=== PATIENT | female | born 1950 | race Caucasian/White ===

== ENCOUNTER → 2017-11-25 13:50 | Outpatient (CLI) | payer OTHER, SELFPAY | PROVIDERS: Visit Provider Student in an Organized Health Care Education/Training Program | DX: M85.88 Other specified disorders of bone density and structure, other site (principal); Z78.0 Asymptomatic menopausal state; E58 Dietary calcium deficiency | CPT/HCPCS: 77080 ==

== ENCOUNTER 2019-06-26 14:21 | Emergency (ER) | payer MEDICARE, SELFPAY ==
[2019-06-26 14:29] VITALS: BP 109/53; PULSE 82; RESP 20; TEMP 36.4; O2SAT 98; BMI 25.0
[2019-06-26 15:29] LABS: RBC Urine 1-5/HPF (0-5/HPF)
[2019-06-26 15:30] LABS: Bacteria Urine Many (>30); Culture Indicated Urine Specimen Cultured; Hyaline Casts Urine 1-5/LPF; Squamous Epithelial Cell Urine None Seen (0-5/HPF); WBC Urine >100/HPF (0-5/HPF)
[2019-06-26 17:14] VITALS: BP 129/58; PULSE 105; RESP 18; TEMP 39; O2SAT 99
--- NOTE | 2019-06-26 17:36 | DI.RAD.S_ITS ---
PROCEDURE: XR CHEST 1V INDICATIONS: suspected sepsis TECHNIQUE: One view of the chest was acquired. COMPARISON: None. FINDINGS: Surgical changes and devices: None. Lungs and pleura: Lungs are clear. No pleural effusions or pneumothorax. Mediastinum: Mediastinal contours appear normal. Heart size is normal. Bones and chest wall: No suspicious bony lesions. Overlying soft tissues appear unremarkable. IMPRESSION: No acute cardiopulmonary disease process. Dictated by: Miranda Farris MD, PhD on 06/26/2019 at 18:45 Approved by: Miranda Farris MD, PhD on 06/26/2019 at 18:45
[2019-06-26 18:04] LABS: Add Manual Diff / Slide Review NO; Basophils Absolute Auto 0 /uL (0-100); Basophils Percent Auto 0.3 % (0-2); Eosinophils Absolute Auto 0 /uL (0-450); Hematocrit 38.4 % (36-46); Hemoglobin 12.9 g/dL (12.0-16.0); Lymphocytes Absolute Auto 500 /uL (1100-4500); Lymphocytes Percent Auto 3.5 % (25-40); Mean Corpuscular HGB Conc 33.6 % (30-36); Mean Corpuscular Hemoglobin 29.7 PG (26-34); Mean Corpuscular Volume 88.4 fL (80-100); Monocytes Absolute Auto 1600 /uL (0-900); Monocytes Percent Auto 10.4 % (3-14); Neutrophils Absolute Auto 12800 /uL (1500-7000); Neutrophils Percent Auto 85.8 % (50-75); Platelet Count 190 X10^3/uL (150-400); Red Blood Cell Count 4.35 X10^6/uL (4.0-5.2); Red Cell Distribution Width 13.6 % (11.6-14.8); White Blood Cell Count 14.9 X10^3/uL (4.5-11.0)
[2019-06-26 18:06] LABS: INR 1.3 (0.9-1.3); Prothrombin Time 15.4 SECONDS (10.1-12.7)
[2019-06-26 18:08] LABS: PTT Partial Thromboplastin Tim 29 SECONDS (26.4-36.2)
[2019-06-26 18:09] LABS: Alanine Aminotransferase 19 IU/L (<35); Albumin 4.2 g/dL (3.5-5.0); Albumin Globulin Ratio 1.2 (1.0-2.8); Alkaline Phosphatase 94 U/L (38-126); Aspartate Aminotransferase 22 IU/L (14-36); BUN Creatinine Ratio 32.9 (6-22); Bilirubin Total 2.4 mg/dL (0.2-1.3); Blood Urea Nitrogen 23 mg/dL (7-17); Calcium 9.7 mg/dL (8.4-10.2); Carbon Dioxide 23 mmol/L (22-32); Chloride 103 mmol/L (98-107); Estimated Glomerular Filt Rate > 60.0 mL/min (>60); Globulin 3.5 g/dL (1.7-4.1); Glucose 134 mg/dL (80-110); HEMOLYSIS < 15 (0-50); Potassium 3.6 mmol/L (3.4-5.1); Sodium 138 mmol/L (137-145); Total Protein 7.7 g/dL (6.3-8.2)
[2019-06-26 18:10] LABS: Lactate (Lactic Acid) 1.2 mmol/L (0.7-2.1); Lipase < 10 U/L (23-300)
[2019-06-26 18:24] VITALS: TEMP 37.9
[2019-06-26] MEDS: ACETAMINOPHEN 325 MG TABLET 650 MG PO (18:24)
[2019-06-26] MEDS: SODIUM CHLORIDE 0.9% 1,000 ML 1000 ML IV (18:25)
[2019-06-26 18:26] VITALS: TEMP 37.9
[2019-06-26] MEDS: ONDANSETRON 4 MG/2 ML INJ IV ×2 (18:26→20:04)
[2019-06-26] MEDS: KETOROLAC 60 MG/2 ML VIAL 15 MG IV (18:26)
[2019-06-26] MEDS: CEFTRIAXONE 1 GM/50 ML FROZ.PIGGY IV (18:27)
[2019-06-26 18:37] LABS: Procalcitonin 2.41 ng/mL (<0.5)
--- NOTE | 2019-06-26 18:41 | PC.NURSE ---
sent from walk in clinic. Urine positive in [facility]
--- NOTE | 2019-06-26 19:30 | ED_ITS ---
HPI - Female Genitourinary <Jimmy NicoleJULIANNAP - Last Filed: 06/26/19 21:50> General Chief complaint: Urogenital-Female Stated complaint: patient states UTI Time Seen by Provider: 06/26/19 16:57 Source: patient Mode of arrival: Wheelchair Limitations: no limitations History of Present Illness HPI Narrative: This is a pleasant 61 year female who appears to be younger than her stated age, nonsmoker, who presents to ED with significant other with I have UTI. Patient was referred from a walk-in clinic for an evaluation. Patient reports T-max of 104? at home this morning and she took Advil which helped with her temperature and made her feel better. She also reports has chills, lightheadedness and mild sensation of vertigo (has a history of this), and feeling fatigue. She also reports urinary incontinence for last couple of days without other urinary symptoms such as urgency, frequency, dysuria, hematuria. Patient states she was nauseated all day for last 2 days and has be en vomiting since last night. Patient also reports returning from [place] last night feeling ill. Related Data Previous Rx's Medication Instructions Recorded cephalexin [Keflex] 500 mg PO Q6H 10 Days #40 cap 06/26/19 ondansetron 4 mg PO Q6-8H PRN #10 tab 06/26/19 Allergies Allergy/AdvReac Type Severity Reaction Status Date / Time No Known Drug Allergies Allergy Verified 06/26/19 18:23 Review of Systems <Jimmy NicoleJULIANNAP - Last Filed: 06/26/19 21:50> Review of Systems Narrative: General: Reports fever, chills, fatigue, malaise. HEENT: Denies sinus pain, ear pain, sore throat, difficulty swallowing, (+) dizziness. Respiratory: Denies dyspnea, cough, wheezing, hemoptysis, sputum. Cardiovascular: Denies chest pain, palpitations, orthopnea, edema. Gastrointestinal: Reports nausea and vomiting. Denies abdominal pain, diarrhea, constipation, melena. : Denies dysuria, frequency, (+) incontinence, hematuria, urinary retention. Musculoskeletal: Denies weakness, joint pain or bony pain. Skin: Denies rash, skin lesions, or other. Neurologic: Denies weakness, headache, numbness, change in speech, confusion, seizures, incoordination. Psychiatric: No concerning psychosocial issues. 12-point review of systems is negative except for those stated above. Patient History <HALIE Conrad - Last Filed: 06/26/19 21:50> Medical History No significant past medical history (Acute) Surgical History No pertinent past surgical history (Acute) Smoking Status: Never smoker alcohol intake frequency: other Substance Use Type: does not use Exam <HALIE Conrad - Last Filed: 06/26/19 21:50> Narrative Exam Narrative: GEN: Alert, oriented x 3, appears to be younger than her stated age, well nourished, and in no acute distress. Head: Normal cephalic, atraumatic. No scalp or temporal tenderness, palpable mass or rash. EYES: Pupils are equal, round, and reactive to light and accommodation. Extraocular muscles are intact bilaterally. There is no subconjunctival hemorrhage, exudate and sclera non-icteric. ENT: Bilateral auditory canals and tympanic membranes clear. Hearing grossly intact. Nose without bleeding, purulent discharge or deviation. Facial sinuses nontender to palpate. Mucous membrane dry, no mucosal lesion. Throat without erythema, tonsillar hypertrophy or exudate. Uvula in midline, airway patent. Neck: Trachea in midline. No JVD, non-tender without lymphadenopathy. No masses or thyroid megaly. Supple, non-tender and no meningeal signs. CARDIAC: Normal regular rate and rhythm without murmurs, gallops, or rubs. No chest wall tenderness. No peripheral edema, cyanosis or pallor. Capillary refill is less than 2 seconds. RESPIRATORY: Lungs are clear to auscultate bilaterally. No cough, wheezes, rales, or rhonchi. No stridor, respiratory distress, increase work of breathing, or accessary muscle used. ABD: Abdomen soft, bilateral lower abdomen TTP with non-distended. No guarding or rebound tenderness to palpate. Bowel sounds are normal in all 4 quadrants. There is no palpable masses or organomegaly. EXT: Full painless ROM of all extremities with no loss of sensation, strength, effusion or edema. SKIN: Warm, dry, normal color for patient. No erythema, lesions or rash over visible areas. BACK: Nontender without deformity or crepitance. No flank tenderness. NEUROLOGICAL: Alert and oriented to place, time and person. Sensation and motor function intact bilaterally. No facial droops, dysphasia. PSYCHIATRIC: Good judgement and reason, without hallucinations, abnormal affect or abnormal behaviors during the examination. Initial Vital Signs Initial Vital Signs: Vital Signs Temperature 97.6 F 06/26/19 14:29 Pulse Rate 82 06/26/19 14:29 Respiratory Rate 06/26/19 14:29 Blood Pressure 109/53 L 06/26/19 14:29 Pulse Oximetry 98 06/26/19 14:29 <Zachary Mascorro MD - Last Filed: 06/26/19 23:14> Initial Vital Signs Initial Vital Signs: Vital Signs Temperature 97.6 F 06/26/19 14:29 Pulse Rate 82 06/26/19 14:29 Respiratory Rate 06/26/19 14:29 Blood Pressure 109/53 L 06/26/19 14:29 Pulse Oximetry 98 06/26/19 14:29 Scores <HALIE Conrad - Last Filed: 06/26/19 21:50> GCS Krystal coma scale eye opening: Spontaneous Krystal coma scale verbal response: Orientated Krystal coma scale motor response: Obey commands Krystal coma scale total score: 15 Course <HALIE Conrad - Last Filed: 06/26/19 21:50> Orders Ordered: ED Orders 06/26/19 15:00 Urine Culture Stat Urine Microscopic Stat 06/26/19 17:36 XR chest 1V Stat EKG-12 Lead Stat RT Consult Eval and Treat Now 06/26/19 17:45 Complete Blood Count AUTO DIFF Stat Comprehensive Metabolic Panel Stat Lactate (Lactic Acid) Stat Lipase Stat Partial Thromboplastin Time Stat Procalcitonin Stat Prothrombin Time INR Stat 06/26/19 18:20 Blood Culture Stat 06/26/19 19:40 Influenza A & B (PCR) Stat Discontinued Medications Acetaminophen (Tylenol) 650 mg PO NOW ONE Stop: 06/26/19 18:10 Last Admin: 06/26/19 18:24 Dose: 650 mg Documented by: NHAN Sodium Chloride (Normal Saline 0.9%) 1,000 mls @ 1,000 mls/hr IV BOLUS ONE Stop: 06/26/19 18:35 Last Infusion: 06/26/19 21:03 Dose: 0 mls/hr Documented by: Admin: 06/26/19 18:25 Dose: 1,000 mls/hr Documented by: NHAN Ceftriaxone Sodium/Dextrose (Rocephin) 1 gm in 50 mls @ 100 mls/hr IV NOW ONE Stop: 06/26/19 18:39 Last Infusion: 06/26/19 21:03 Dose: 0 mls/hr Documented by: Admin: 06/26/19 18:27 Dose: 100 mls/hr Documented by: NHAN Ketorolac Tromethamine (Toradol) 15 mg IV NOW ONE Stop: 06/26/19 18:10 Last Admin: 06/26/19 18:26 Dose: 15 mg Documented by: NHAN Ondansetron HCl (Zofran) 4 mg IV NOW ONE Stop: 06/26/19 18:10 Last Admin: 06/26/19 18:26 Dose: 4 mg Documented by: NHAN Ondansetron HCl (Zofran) 4 mg IV NOW ONE Stop: 06/26/19 19:52 Last Admin: 06/26/19 20:04 Dose: 4 mg Documented by: NHAN Ondansetron HCl (Zofran Odt Prepack) 1 bottle MISC SEEINSTR ONE Stop: 06/26/19 20:54 Last Admin: 06/26/19 21:05 Dose: 1 bottle Documented by: NHAN Vital Signs Vital signs: Vital Signs - 8 hr 06/26/19 17:14 06/26/19 18:24 06/26/19 18:26 Temperature 102.2 F H 100.2 F H 100.2 F H Pulse Rate 105 H Respiratory Rate 18 Blood Pressure Blood Pressure [Right Arm] 129/58 L Pulse Oximetry 99 06/26/19 19:51 06/26/19 21:18 Temperature 98.7 F Pulse Rate 85 82 Respiratory Rate 16 15 Blood Pressure 101/61 Blood Pressure [Right Arm] 110/56 L Pulse Oximetry 97 97 <Zachary Mascorro MD - Last Filed: 06/26/19 23:14> Orders Ordered: ED Orders 06/26/19 15:00 Urine Culture Stat Urine Microscopic Stat 06/26/19 17:36 XR chest 1V Stat EKG-12 Lead Stat RT Consult Eval and Treat Now 06/26/19 17:45 Complete Blood Count AUTO DIFF Stat Comprehensive Metabolic Panel Stat Lactate (Lactic Acid) Stat Lipase Stat Partial Thromboplastin Time Stat Procalcitonin Stat Prothrombin Time INR Stat 06/26/19 18:20 Blood Culture Stat 06/26/19 19:40 Influenza A & B (PCR) Stat Discontinued Medications Acetaminophen (Tylenol) 650 mg PO NOW ONE Stop: 06/26/19 18:10 Last Admin: 06/26/19 18:24 Dose: 650 mg Documented by: NHAN Sodium Chloride (Normal Saline 0.9%) 1,000 mls @ 1,000 mls/hr IV BOLUS ONE Stop: 06/26/19 18:35 Last Infusion: 06/26/19 21:03 Dose: 0 mls/hr Documented by: Admin: 06/26/19 18:25 Dose: 1,000 mls/hr Documented by: NHAN Ceftriaxone Sodium/Dextrose (Rocephin) 1 gm in 50 mls @ 100 mls/hr IV NOW ONE Stop: 06/26/19 18:39 Last Infusion: 06/26/19 21:03 Dose: 0 mls/hr Documented by: Admin: 06/26/19 18:27 Dose: 100 mls/hr Documented by: NHAN Ketorolac Tromethamine (Toradol) 15 mg IV NOW ONE Stop: 06/26/19 18:10 Last Admin: 06/26/19 18:26 Dose: 15 mg Documented by: NHAN Ondansetron HCl (Zofran) 4 mg IV NOW ONE Stop: 06/26/19 18:10 Last Admin: 06/26/19 18:26 Dose: 4 mg Documented by: NHAN Ondansetron HCl (Zofran) 4 mg IV NOW ONE Stop: 06/26/19 19:52 Last Admin: 06/26/19 20:04 Dose: 4 mg Documented by: NHAN Ondansetron HCl (Zofran Odt Prepack) 1 bottle MISC SEEINSTR ONE Stop: 06/26/19 20:54 Last Admin: 06/26/19 21:05 Dose: 1 bottle Documented by: NHAN Vital Signs Vital signs: Vital Signs - 8 hr 06/26/19 17:14 06/26/19 18:24 06/26/19 18:26 Temperature 102.2 F H 100.2 F H 100.2 F H Pulse Rate 105 H Respiratory Rate 18 Blood Pressure Blood Pressure [Right Arm] 129/58 L Pulse Oximetry 99 06/26/19 19:51 06/26/19 21:18 Temperature 98.7 F Pulse Rate 85 82 Respiratory Rate 16 15 Blood Pressure 101/61 Blood Pressure [Right Arm] 110/56 L Pulse Oximetry 97 97 MDM - Female Genitourinary <Jimmy Otero-HALIE Travis - Last Filed: 06/26/19 21:50> Differential Diagnosis Differential diagnosis: Likely urinary tract infection (Pyelonephritis) and cystitis Medical Records Attestation: I reviewed the patient's medical records. Lab Data Attestation: I reviewed the patient's lab results. Result diagrams: 06/26/19 17:45 06/26/19 17:45 Labs: Lab Results 06/26/19 06/26/19 06/26/19 Range/Units 15:00 17:45 17:45 WBC 14.9 H (4.5-11.0) X10^3/uL RBC 4.35 (4.0-5.2) X10^6/uL Hgb 12.9 (12.0-16.0) g/dL Hct 38.4 (36-46) % MCV 88.4 (80-100) fL MCH 29.7 (26-34) PG MCHC 33.6 (30-36) % RDW 13.6 (11.6-14.8) % Plt Count 190 (150-400) X10^3/uL Neut % (Auto) 85.8 H (50-75) % Lymph % (Auto) 3.5 L (25-40) % Alcorn % (Auto) 10.4 (3-14) % Eos % (Auto) 0.0 L (2-4) % Baso % (Auto) 0.3 (0-2) % Neut # (Auto) 53460 H (3412-7959) /uL Lymph # (Auto) 500 L (2755-5225) /uL Alcorn # (Auto) 1600 H (0-900) /uL Eos # (Auto) 0 (0-450) /uL Baso # (Auto) 0 (0-100) /uL PT 15.4 H (10.1-12.7) SECONDS INR 1.3 (0.9-1.3) APTT 29 (26.4-36.2) SECONDS Sodium (137-145) mmol/L Potassium (3.4-5.1) mmol/L Chloride (98-107) mmol/L Carbon Dioxide (22-32) mmol/L BUN (7-17) mg/dL Creatinine (0.52-1.04) mg/dL Estimated GFR (>60) mL/min BUN/Creatinine Ratio (6-22) Glucose (80-110) mg/dL Lactate (0.7-2.1) mmol/L Calcium (8.4-10.2) mg/dL Total Bilirubin (0.2-1.3) mg/dL AST (14-36) IU/L ALT (<35) IU/L Alkaline Phosphatase (38-126) U/L Total Protein (6.3-8.2) g/dL Albumin (3.5-5.0) g/dL Globulin (1.7-4.1) g/dL Albumin/Globulin Ratio (1.0-2.8) Lipase (23-300) U/L Procalcitonin (<0.5) ng/mL Urine RBC 1-5/hpf (0-5/HPF) Urine WBC >100/hpf H (0-5/HPF) Ur Squamous Epith Cells None seen (0-5/HPF) Urine Bacteria Many (>30) H (None) Hyaline Casts 1-5/lpf (None) Ur Culture Indicated? Specimen cultured Influenza A (RT-PCR) (NEGATIVE) Influenza B (RT-PCR) (NEGATIVE) 06/26/19 06/26/19 06/26/19 Range/Units 17:45 17:45 17:45 WBC (4.5-11.0) X10^3/uL RBC (4.0-5.2) X10^6/uL Hgb (12.0-16.0) g/dL Hct (36-46) % MCV (80-100) fL MCH (26-34) PG MCHC (30-36) % RDW (11.6-14.8) % Plt Count (150-400) X10^3/uL Neut % (Auto) (50-75) % Lymph % (Auto) (25-40) % Alcorn % (Auto) (3-14) % Eos % (Auto) (2-4) % Baso % (Auto) (0-2) % Neut # (Auto) (0778-0413) /uL Lymph # (Auto) (0007-4621) /uL Alcorn # (Auto) (0-900) /uL Eos # (Auto) (0-450) /uL Baso # (Auto) (0-100) /uL PT (10.1-12.7) SECONDS INR (0.9-1.3) APTT (26.4-36.2) SECONDS Sodium 138 (137-145) mmol/L Potassium 3.6 (3.4-5.1) mmol/L Chloride 103 (98-107) mmol/L Carbon Dioxide 23 (22-32) mmol/L BUN 23 H (7-17) mg/dL Creatinine 0.70 (0.52-1.04) mg/dL Estimated GFR > 60.0 (>60) mL/min BUN/Creatinine Ratio 32.9 H (6-22) Glucose 134 H (80-110) mg/dL Lactate 1.2 (0.7-2.1) mmol/L Calcium 9.7 (8.4-10.2) mg/dL Total Bilirubin 2.4 H (0.2-1.3) mg/dL AST 22 (14-36) IU/L ALT 19 (<35) IU/L Alkaline Phosphatase 94 (38-126) U/L Total Protein 7.7 (6.3-8.2) g/dL Albumin 4.2 (3.5-5.0) g/dL Globulin 3.5 (1.7-4.1) g/dL Albumin/Globulin Ratio 1.2 (1.0-2.8) Lipase < 10 L (23-300) U/L Procalcitonin 2.41 H (<0.5) ng/mL Urine RBC (0-5/HPF) Urine WBC (0-5/HPF) Ur Squamous Epith Cells (0-5/HPF) Urine Bacteria (None) Hyaline Casts (None) Ur Culture Indicated? Influenza A (RT-PCR) (NEGATIVE) Influenza B (RT-PCR) (NEGATIVE) 06/26/19 Range/Units 19:40 WBC (4.5-11.0) X10^3/uL RBC (4.0-5.2) X10^6/uL Hgb (12.0-16.0) g/dL Hct (36-46) % MCV (80-100) fL MCH (26-34) PG MCHC (30-36) % RDW (11.6-14.8) % Plt Count (150-400) X10^3/uL Neut % (Auto) (50-75) % Lymph % (Auto) (25-40) % Alcorn % (Auto) (3-14) % Eos % (Auto) (2-4) % Baso % (Auto) (0-2) % Neut # (Auto) (9592-1557) /uL Lymph # (Auto) (1598-8627) /uL Alcorn # (Auto) (0-900) /uL Eos # (Auto) (0-450) /uL Baso # (Auto) (0-100) /uL PT (10.1-12.7) SECONDS INR (0.9-1.3) APTT (26.4-36.2) SECONDS Sodium (137-145) mmol/L Potassium (3.4-5.1) mmol/L Chloride (98-107) mmol/L Carbon Dioxide (22-32) mmol/L BUN (7-17) mg/dL Creatinine (0.52-1.04) mg/dL Estimated GFR (>60) mL/min BUN/Creatinine Ratio (6-22) Glucose (80-110) mg/dL Lactate (0.7-2.1) mmol/L Calcium (8.4-10.2) mg/dL Total Bilirubin (0.2-1.3) mg/dL AST (14-36) IU/L ALT (<35) IU/L Alkaline Phosphatase (38-126) U/L Total Protein (6.3-8.2) g/dL Albumin (3.5-5.0) g/dL Globulin (1.7-4.1) g/dL Albumin/Globulin Ratio (1.0-2.8) Lipase (23-300) U/L Procalcitonin (<0.5) ng/mL Urine RBC (0-5/HPF) Urine WBC (0-5/HPF) Ur Squamous Epith Cells (0-5/HPF) Urine Bacteria (None) Hyaline Casts (None) Ur Culture Indicated? Influenza A (RT-PCR) Flu a negative (NEGATIVE) Influenza B (RT-PCR) Flu b negative (NEGATIVE) Urine Dip Bedside Urine Glucose Negative Bedside Urine Bilirubin - Negative Bedside Urine Ketone ++ 40 Urine Specific [place] 1.020 Bedside Urine Occult Blood +++ Bedside Urine pH 6.0 Bedside Urine Protein + 30 Bedside Urine Urobilinogen +/- 1mg Bedside Urine Nitrite + Positive Bedside Urine Leukocytes +++ 500 Esterase MDM Narrative Medical decision making narrative: Patient reports urinary frequency and incontinence for last 3 days with fever, chills, malaise, lightheadedness, nausea and vomiting. POC UA shows occult blood, protein, positive urine nitrite and leuko esterase. UA with>100 WBC and many bacteria and culture pending. CBC shows leukocytosis of 14.9 with elevated neutrophil of 85.8%. Chemistry test indicates some dehydration with increased BUN of 23 with BUN/creatinine ratio of 32.9. Normal lactate with elevated procalcitonin of 2.41. While the patient was waiting after triaged, patient's temperature increased to 102.2 and tachycardia. Patient was hydrated with normal saline 1 liter, IV zofran, Toradol and Tylenol for her symptoms. With increased white count and procalcitonin with positive urine test and fever, patient was treated with Rocephin 1 g for pyelonephritis and discharged to home with Rx of Keflex 500 mg q.i.d. dose for 10 days. Patient was able to hydrate with liquid after 2 doses of Zofran and discharged to home with prepack of Zofran. Patient was able to ambulate to the bathroom with standby assistance by her in stable gait. We discussed strict return precautions if she were to fail outpatient treatment for pyelonephritis and patient and spouse verbalized understanding and agree agrees with the treatment plan. Patient advised to follow up with PCP in next couple of days. Improved vital signs before discharged to home. <Zachary Mascorro MD - Last Filed: 06/26/19 23:14> Lab Data Labs: Lab Results 06/26/19 06/26/19 06/26/19 Range/Units 15:00 17:45 17:45 WBC 14.9 H (4.5-11.0) X10^3/uL RBC 4.35 (4.0-5.2) X10^6/uL Hgb 12.9 (12.0-16.0) g/dL Hct 38.4 (36-46) % MCV 88.4 (80-100) fL MCH 29.7 (26-34) PG MCHC 33.6 (30-36) % RDW 13.6 (11.6-14.8) % Plt Count 190 (150-400) X10^3/uL Neut % (Auto) 85.8 H (50-75) % Lymph % (Auto) 3.5 L (25-40) % Alcorn % (Auto) 10.4 (3-14) % Eos % (Auto) 0.0 L (2-4) % Baso % (Auto) 0.3 (0-2) % Neut # (Auto) 79946 H (1597-5775) /uL Lymph # (Auto) 500 L (9884-4731) /uL Alcorn # (Auto) 1600 H (0-900) /uL Eos # (Auto) 0 (0-450) /uL Baso # (Auto) 0 (0-100) /uL PT 15.4 H (10.1-12.7) SECONDS INR 1.3 (0.9-1.3) APTT 29 (26.4-36.2) SECONDS Sodium (137-145) mmol/L Potassium (3.4-5.1) mmol/L Chloride (98-107) mmol/L Carbon Dioxide (22-32) mmol/L BUN (7-17) mg/dL Creatinine (0.52-1.04) mg/dL Estimated GFR (>60) mL/min BUN/Creatinine Ratio (6-22) Glucose (80-110) mg/dL Lactate (0.7-2.1) mmol/L Calcium (8.4-10.2) mg/dL Total Bilirubin (0.2-1.3) mg/dL AST (14-36) IU/L ALT (<35) IU/L Alkaline Phosphatase (38-126) U/L Total Protein (6.3-8.2) g/dL Albumin (3.5-5.0) g/dL Globulin (1.7-4.1) g/dL Albumin/Globulin Ratio (1.0-2.8) Lipase (23-300) U/L Procalcitonin (<0.5) ng/mL Urine RBC 1-5/hpf (0-5/HPF) Urine WBC >100/hpf H (0-5/HPF) Ur Squamous Epith Cells None seen (0-5/HPF) Urine Bacteria Many (>30) H (None) Hyaline Casts 1-5/lpf (None) Ur Culture Indicated? Specimen cultured Influenza A (RT-PCR) (NEGATIVE) Influenza B (RT-PCR) (NEGATIVE) 06/26/19 06/26/19 06/26/19 Range/Units 17:45 17:45 17:45 WBC (4.5-11.0) X10^3/uL RBC (4.0-5.2) X10^6/uL Hgb (12.0-16.0) g/dL Hct (36-46) % MCV (80-100) fL MCH (26-34) PG MCHC (30-36) % RDW (11.6-14.8) % Plt Count (150-400) X10^3/uL Neut % (Auto) (50-75) % Lymph % (Auto) (25-40) % Alcorn % (Auto) (3-14) % Eos % (Auto) (2-4) % Baso % (Auto) (0-2) % Neut # (Auto) (5036-1149) /uL Lymph # (Auto) (4579-1542) /uL Alcorn # (Auto) (0-900) /uL Eos # (Auto) (0-450) /uL Baso # (Auto) (0-100) /uL PT (10.1-12.7) SECONDS INR (0.9-1.3) APTT (26.4-36.2) SECONDS Sodium 138 (137-145) mmol/L Potassium 3.6 (3.4-5.1) mmol/L Chloride 103 (98-107) mmol/L Carbon Dioxide 23 (22-32) mmol/L BUN 23 H (7-17) mg/dL Creatinine 0.70 (0.52-1.04) mg/dL Estimated GFR > 60.0 (>60) mL/min BUN/Creatinine Ratio 32.9 H (6-22) Glucose 134 H (80-110) mg/dL Lactate 1.2 (0.7-2.1) mmol/L Calcium 9.7 (8.4-10.2) mg/dL Total Bilirubin 2.4 H (0.2-1.3) mg/dL AST 22 (14-36) IU/L ALT 19 (<35) IU/L Alkaline Phosphatase 94 (38-126) U/L Total Protein 7.7 (6.3-8.2) g/dL Albumin 4.2 (3.5-5.0) g/dL Globulin 3.5 (1.7-4.1) g/dL Albumin/Globulin Ratio 1.2 (1.0-2.8) Lipase < 10 L (23-300) U/L Procalcitonin 2.41 H (<0.5) ng/mL Urine RBC (0-5/HPF) Urine WBC (0-5/HPF) Ur Squamous Epith Cells (0-5/HPF) Urine Bacteria (None) Hyaline Casts (None) Ur Culture Indicated? Influenza A (RT-PCR) (NEGATIVE) Influenza B (RT-PCR) (NEGATIVE) 06/26/19 Range/Units 19:40 WBC (4.5-11.0) X10^3/uL RBC (4.0-5.2) X10^6/uL Hgb (12.0-16.0) g/dL Hct (36-46) % MCV (80-100) fL MCH (26-34) PG MCHC (30-36) % RDW (11.6-14.8) % Plt Count (150-400) X10^3/uL Neut % (Auto) (50-75) % Lymph % (Auto) (25-40) % Alcorn % (Auto) (3-14) % Eos % (Auto) (2-4) % Baso % (Auto) (0-2) % Neut # (Auto) (1931-9610) /uL Lymph # (Auto) (8565-6244) /uL Alcorn # (Auto) (0-900) /uL Eos # (Auto) (0-450) /uL Baso # (Auto) (0-100) /uL PT (10.1-12.7) SECONDS INR (0.9-1.3) APTT (26.4-36.2) SECONDS Sodium (137-145) mmol/L Potassium (3.4-5.1) mmol/L Chloride (98-107) mmol/L Carbon Dioxide (22-32) mmol/L BUN (7-17) mg/dL Creatinine (0.52-1.04) mg/dL Estimated GFR (>60) mL/min BUN/Creatinine Ratio (6-22) Glucose (80-110) mg/dL Lactate (0.7-2.1) mmol/L Calcium (8.4-10.2) mg/dL Total Bilirubin (0.2-1.3) mg/dL AST (14-36) IU/L ALT (<35) IU/L Alkaline Phosphatase (38-126) U/L Total Protein (6.3-8.2) g/dL Albumin (3.5-5.0) g/dL Globulin (1.7-4.1) g/dL Albumin/Globulin Ratio (1.0-2.8) Lipase (23-300) U/L Procalcitonin (<0.5) ng/mL Urine RBC (0-5/HPF) Urine WBC (0-5/HPF) Ur Squamous Epith Cells (0-5/HPF) Urine Bacteria (None) Hyaline Casts (None) Ur Culture Indicated? Influenza A (RT-PCR) Flu a negative (NEGATIVE) Influenza B (RT-PCR) Flu b negative (NEGATIVE) Urine Dip Bedside Urine Glucose Negative Bedside Urine Bilirubin - Negative Bedside Urine Ketone ++ 40 Urine Specific [place] 1.020 Bedside Urine Occult Blood +++ Bedside Urine pH 6.0 Bedside Urine Protein + 30 Bedside Urine Urobilinogen +/- 1mg Bedside Urine Nitrite + Positive Bedside Urine Leukocytes +++ 500 Esterase Discharge Plan Departure Patient Disposition: Home Clinical Impression: Kidney infection Discharge Date/Time: 06/26/19 21:21 Activity Restrictions/Additional Instructions: You have been diagnosed with [kidney infection. Your blood tests show increased in WBC of 14.9 and neutrophils and procalcitonin with normal Lactate. Chemistry test shows mild dehydration. You were treated with IV Rocephin for antibiotic medication, Zofran for anti nausea, the IV fluid while in ED. you are able to tolerate fluids before discharged to home. Urine culture is pending and you will receive a phone call if you need different antibiotic medication for coverage in a couple of days]. What to do: *Take your medications as directed. Please take Keflex 4 times a day for next 10 days. Please take Zofran 3 to 4 times a day as needed for nausea and vomiting. Please hydrate adequately. This medication has been transmitted to [facility]. You can take Tylenol and or Motrin as needed for discomfort, fever. *Follow up with your primary care provider in 2-3 days, call for an appointment. Let them know you were seen in the ED and that we asked you to be seen in follow up. *Return to ED if you have any new, worsening, or concerning symptoms, such as [severe pain, unable to tolerate fluids, chest pain, breathing difficulty, flank pain, or any acute concerns]. Prescriptions: New cephalexin [Keflex] 500 mg capsule 500 mg PO Q6H 10 Days Qty: 40 RF: 0 ondansetron 4 mg tablet,disintegrating 4 mg PO Q6-8H PRN (Reason: nausea and vomiting) Qty: 10 RF: 0 Referrals: Isabel Dee ARNP [Primary Care Provider] - Kristopher Clayton MD [Physician] -
[2019-06-26 19:51] VITALS: BP 110/56; PULSE 85; RESP 16; TEMP 37.1; O2SAT 97
[2019-06-26 20:14] LABS: Influenza A - CEPHEID Flu A NEGATIVE (NEGATIVE); Influenza B - CEPHEID Flu B NEGATIVE (NEGATIVE)
[2019-06-26] MEDS: ONDANSETRON 4 MG ODT PREPACK 1 BOTTLE MISC (21:05)
[2019-06-26 21:18] VITALS: BP 101/61; PULSE 82; RESP 15; O2SAT 97
== END 2019-06-26 21:21 | disposition home or self-care (01) ==
PROVIDERS: Emergency Medicine; Emergency Provider Nurse Practitioner Family; PCP Nurse Practitioner
DX: N15.9 Renal tubulo-interstitial disease, unspecified (principal); A41.9 Sepsis, unspecified organism; R50.9 Fever, unspecified
CPT/HCPCS: 36415; 71045; 80053; 81003; 81015; 83605; 83690; 84145; 85025; 85610; 85730; 87040; 87077; 87086; 87186; 87502; 93005; 96365; 96366; 96375; 96376; 99284; 99285; J1885; J2405

== ENCOUNTER → 2019-11-19 10:25 | Outpatient (CLI) | payer MEDICARE, SELFPAY | PROVIDERS: PCP Nurse Practitioner; Visit Provider Physician Assistant | DX: R30.0 Dysuria (principal) | CPT/HCPCS: 87077; 87086; 87186 ==

== ENCOUNTER → 2019-12-14 11:52 | Outpatient (CLI) | payer MEDICARE, SELFPAY ==
--- NOTE | 2019-12-14 | DI.US.S_ITS ---
PROCEDURE: US RENAL COMPLETE INDICATIONS: SYMPTOMS AND SIGNS INVOLVING GENITOURINARY SYSTEM TECHNIQUE: Real-time scanning was performed of the kidneys and bladder, with image documentation. COMPARISON: None. FINDINGS: Kidneys: Kidneys are normal in size. Right kidney measures 12.5 cm long; left kidney measures 10.3 cm long. Right renal cortical thickness is 1.4 cm; left renal cortical thickness is 1.6 cm. Renal cortical echotexture is normal. On the right, there is no hydronephrosis. Multiple simple appearing cysts are seen, with the largest measuring 1.5 cm. Multiple shadowing stones are seen, with the largest measuring 5 mm. On the left, there is mild to moderate hydronephrosis and hydroureter. No stones or significant cysts are seen. No suspicious solid mass lesions. Bladder: Pre-void bladder volume is 122 mL. The postvoid measurement was not obtained.. Pre-void images demonstrate no intraluminal masses or stones. On pre-void images, both ureteral jets are noted with color Doppler interrogation. (Of note, ureteral jets may not be detectable in up to 25% of cases due to insufficient differences in specific gravity between ureteral and bladder urine). Miscellaneous: No free pelvic fluid. IMPRESSION: Mild to moderate left-sided hydronephrosis and hydroureter, without a cause identified. On the right, simple appearing cysts and nonobstructing stones are seen. Dictated by: Iftikhar Steen M.D. on 12/14/2019 at 12:29 Approved by: Iftikhar Steen M.D. on 12/14/2019 at 12:31
== END ==
PROVIDERS: PCP Nurse Practitioner Family; Referring Provider Urology; Visit Provider Urology
DX: R39.9 Unspecified symptoms and signs involving the genitourinary system (principal); N28.1 Cyst of kidney, acquired; N20.0 Calculus of kidney; N13.30 Unspecified hydronephrosis
CPT/HCPCS: 76770

== ENCOUNTER → 2019-12-23 11:58 | Outpatient (CLI) | payer MEDICARE, SELFPAY ==
--- NOTE | 2019-12-23 12:17 | DI.CT.S_ITS ---
PROCEDURE: CT ABDOMEN PELVIS WO/W CON INDICATIONS: Unspecified hydronephrosis TECHNIQUE: Optional 5 mm thick noncontrast images acquired from the diaphragm to the symphysis pubis. After the administration of intravenous contrast, 5 mm thick images acquired from the diaphragm to the symphysis pubis after a 10-minute delay. 2 mm thick coronal and sagittal reformats were then performed of the kidneys and ureters. For radiation dose reduction, the following was used: automated exposure control, adjustment of mA and/or kV according to patient size. COMPARISON: None. FINDINGS: Image quality: Excellent. Lung bases: Lung bases are clear. Heart size is normal. Urinary system: Both kidneys are normal size. No right hydronephrosis or nephrolithiasis. Low-density cortical cystic lesions are present bilaterally. No left nephrolithiasis. There is moderate left hydronephrosis and marked left hydroureter to the level of the ureterovesicular junction where there is a 6 mm in diameter calculus present. The bladder is decompressed and thin walled. No bladder calculi. The uterus is grossly unremarkable on this noncontrast study. Ovaries are not well characterized. Other solid organs: Liver is normal in size and enhancement. Gallbladder is unremarkable . Biliary system is non dilated. Pancreas enhances normally. Spleen is normal in size and enhancement. No adrenal nodules. Peritoneum and bowel: Bowel loops demonstrate normal wall thickness and caliber. The appendix is thin walled and gas filled. There are scattered sigmoid diverticula. No evidence for diverticulitis.No free fluid or air. Nodes and vessels: No retroperitoneal or mesenteric adenopathy by size criteria. Aorta and inferior vena cava are normal in size. Scattered atheromatous calcification is present within the aorta. Abdominal wall: No ventral hernias. Pelvis: No pathologic free pelvic fluid. No inguinal hernias or adenopathy. Bones: A 1.4 cm peripherally sclerotic, centrally lucent lesion is present within the left sacrum (series 3/image 122). No vertebral body compression fractures. IMPRESSION: 1. Obstructive left distal ureterolithiasis with resultant left hydronephrosis and hydroureter. 2. Normal appendix. Diverticulosis. No acute diverticulitis. 3. Sclerotic lesion within the left sacrum which may represent a bone island. However, no prior studies are available for comparison. Three-month follow-up recommended to ensure stability. Dictated by: Rosmery Lugo M.D. on 12/23/2019 at 14:17 Approved by: Rosmery Lugo M.D. on 12/23/2019 at 14:23
== END ==
PROVIDERS: PCP Nurse Practitioner Family; Referring Provider Urology; Visit Provider Urology
DX: N13.2 Hydronephrosis with renal and ureteral calculous obstruction (principal); K57.30 Diverticulosis of large intestine without perforation or abscess without bleeding; M89.9 Disorder of bone, unspecified
CPT/HCPCS: 74178; Q9967

== ENCOUNTER → 2020-02-15 12:22 | Outpatient (CLI) | payer MEDICARE, SELFPAY ==
--- NOTE | 2020-02-15 | DI.US.S_ITS ---
PROCEDURE: US RENAL COMPLETE INDICATIONS: FOLLOW-UP LEFT UVJ STONE-SINCE REMOVED TECHNIQUE: Real-time scanning was performed of the kidneys and bladder, with image documentation. COMPARISON: [facility], CT, CT ABDOMEN PELVIS WO/W CON, 12/23/2019, 12:03. [facility], CR, XR RETROGRADE UROGRAPHY, 01/03/2020, 14:38. [facility], US, US RENAL COMPLETE, 12/14/2019, 12:03. FINDINGS: Kidneys: Kidneys are normal in size. Right kidney measures 10.7 cm long; left kidney measures 10.3 cm long. Right renal cortical thickness is 1.4 cm; left renal cortical thickness is 1.7 cm. Renal cortical echotexture is normal. No hydronephrosis or nephrolithiasis. No suspicious solid mass lesions. There is a 1.4 cm maximal dimension right renal cortical cyst Bladder: Pre-void bladder volume is 304 mL. Post-void residual is 0 mL. Pre-void images demonstrate no intraluminal masses or stones. On pre-void images, bilateral ureteral jets are noted with color Doppler interrogation. (Of note, ureteral jets may not be detectable in up to 25% of cases due to insufficient differences in specific gravity between ureteral and bladder urine). IMPRESSION: Resolution of hydronephrosis on the left after distal ureteral stone extraction. Normal bladder function. Dictated by: Kiran Sanchez M.D. on 02/15/2020 at 14:58 Approved by: Kiran Sanchez M.D. on 02/15/2020 at 15:01
== END ==
PROVIDERS: PCP Nurse Practitioner Family; Referring Provider Urology; Visit Provider Urology
DX: N20.1 Calculus of ureter (principal); N28.1 Cyst of kidney, acquired
CPT/HCPCS: 76770

== ENCOUNTER → 2022-03-04 14:47 | Outpatient (CLI) | payer MEDICARE, SELFPAY ==
--- NOTE | 2022-03-04 14:48 | DI.ECHO.S_ITS ---
[facility] +---------+ : : [address] : : [place] : : : : [id number] : : : : Phone: [phone]+ Echocardiogram Report + + :Name: RAMSEY ANTONIO Study Date: 03/04/2022 Height: 66 in : :[facility] ReadingLocation: Weight: 120 lb: : Gender: Female BSA: 1.6 m2 : :: 1950 Age: 71 yrs BP: 97/56 mmHg: :Reason For Study: SHORTNESS OF BREATH : :Ordering Physician: SHERRY, : :STEFANIA Epperson Performed By: Mirtha Ortiz : :Referring: STEFANIA POWELL : + + Interpretation Summary The ejection fraction is estimated to be 60-65%. Diastolic parameters suggest probable normal left ventricular diastolic function and normal filling pressures. The right ventricle is normal in size and function. There is mild mitral regurgitation. There is trace aortic regurgitation. There is mild tricuspid regurgitation. Pulmonary artery pressures cannot be estimated because of the lack of a measurable TR jet velocity. Procedure: A two-dimensional transthoracic echocardiogram with color flow and Doppler was performed. The study quality was technically adequate. There is no prior echocardiogram noted for this patient. The patient was in sinus bradycardia with heart rates between 50-68 bpm during the exam. Left Ventricle: The left ventricle is normal in size and wall thickness. The ejection fraction is estimated to be 60-65%. Diastolic parameters suggest probable normal left ventricular diastolic function and normal filling pressures. Right Ventricle: The right ventricle is normal in size and function. Atria: The left atrial size is normal. Right atrial size is normal. There is no Doppler evidence for an interatrial shunt. Mitral Valve: The mitral valve leaflets appear mildly thickened, but open well. There is mild mitral regurgitation. Aortic Valve: The aortic valve is trileaflet. The aortic valve opens well. There is no aortic valve stenosis. There is trace aortic regurgitation. Tricuspid Valve: The tricuspid valve is normal in structure and function. There is mild tricuspid regurgitation. Pulmonary artery pressures cannot be estimated because of the lack of a measurable TR jet velocity. Pulmonic Valve: The pulmonic valve is not well visualized. There is no pulmonic valvular regurgitation. Great Vessels: The aortic root is normal size. The ascending aorta could not be visualized. The IVC is dilated (diameter is greater than 2.1 cm) yet it collapses greater than 50% with a sniff. This suggests a right atrial pressure of 8 mm Hg. Pericardium/ Pleura There is no pericardial effusion. There is no pleural effusion. MMode/2D Measurements & Calculations LVIDd: 4.6 cm LVOT diam: 2.0 cm LVIDs: 2.9 cm Ao root diam: 2.9 cm FS: 36.5 % Ao Arch Diam (Prox Trans): 2.3 cm EPSS: 0.32 cm IVSd: 0.56 cm LVPWd: 0.64 cm LV devlin. diameter/BSA (cm/m^2): 2.8 LV sys. diameter/BSA (cm/m^2): 1.8 LA A2 area: 15.3 cm2 RA long axis: 4.0 cm LA A4 area: 9.9 cm2 RA area: 10.9 cm2 LA length (vol): 3.5 cm RA vol: 24.8 ml LA vol: 36.6 ml RA : 15.4 ml/m2 LA vol index: 22.7 ml/m2 IVC diam: 2.1 cm RVD1 (basal): 2.8 cm RVD2 (mid): 2.4 cm TAPSE: 1.7 cm Doppler Measurements & Calculations Ao V2 max: 118.8 cm/sec LVOT Max Dante: 92.1 cm/sec Ao V2 mean: 83.3 cm/sec LV V1 max P.4 mmHg Ao max P.6 mmHg LV V1 VTI: 20.6 cm Ao mean P.1 mmHg RACHELLE(I,D): 2.5 cm2 Ao V2 VTI: 26.6 cm RACHELLE(V,D): 2.6 cm2 sev ratio: 0.77 RACHELLE indexed to BSA (cm^2/m^2): 1.6 MV E max dante: 71.5 cm/sec TR max dante: 211.0 cm/sec MV A max dante: 52.7 cm/sec TR max P.8 mmHg MV E/A: 1.4 PA V2 max: 81.9 cm/sec Med Peak E' Dante: 6.5 cm/sec PA V2 mean: 54.0 cm/sec E/E' med: 11.0 PA mean P.3 mmHg Lat Peak E' Dante: 8.6 cm/sec PA pr(Accel): 8.8 mmHg E/E' lat: 8.3 E/e' average: 9.7 MV dec time: 0.24 sec SV(LVOT): 67.9 ml Reading Physician:04:19 PM
== END ==
PROVIDERS: PCP Nurse Practitioner Family; Referring Provider Nurse Practitioner Family; Visit Provider Nurse Practitioner Family
DX: R06.02 Shortness of breath (principal); I08.1 Rheumatic disorders of both mitral and tricuspid valves
CPT/HCPCS: 93306

== ENCOUNTER → 2023-03-26 | Outpatient (CLI) | payer MEDICARE, SELFPAY ==
--- NOTE | 2023-03-26 | DI.RAD.S_ITS ---
Bone Density Report Name: RAMSEY ANTONIO Age: 72 Sex: Female Ethnicity: White Date of : 1950 Indication: osteopenia; Referring Provider: ZARA FLORES Study: Bone densitometry was performed. Exam Date: March 26, 2023 Accession number: [id number] Bone Density: Region BMD T-score Z-score Classification AP Spine(L1-L4) 0.732 -2.9 -0.7 Osteoporosis Femoral Neck (Left) 0.617 -2.1 -0.2 Osteopenia Total Hip (Left) 0.650 -2.4 -0.8 Osteopenia Femoral Neck (Right) 0.583 -2.4 -0.5 Osteopenia Total Hip (Right) 0.662 -2.3 -0.7 Osteopenia Total Hip Mean 0.656 -2.4 -0.8 Osteopenia World Health Organization criteria for BMD impression classify patients as: Normal (T-score at or above -1.0), Osteopenia (T-score between -1.0 and -2.5), or Osteoporosis (T-score at or below -2.5). 10-year Fracture Risk: FRAX not reported because: Some T-score for Spine Total or Hip Total or Femoral Neck at or below -2.5 Previous Exams: -- Region Exam Age BMD T-score BMD Change BMD Change Date g/cm2 vs Baseline vs Previous -- AP Spine (L1-L4) 03/26/2023 72 0.732 -2.9 -0.096 (-11.6%)# -0.096 (-11.6%)# 11/25/2017 67 0.828 -2.0 Total Hip(Left) 03/26/2023 72 0.650 -2.4 -0.073 (-10.1%)# -0.073 (-10.1%)# 11/25/2017 67 0.723 -1.8 Total Hip(Right) 03/26/2023 72 0.662 -2.3 -0.080 (-10.7%)# -0.080 (-10.7%)# 11/25/2017 67 0.742 -1.6 -- *Denotes significance at 95% confidence level, LSC for AP Spine = 0.022 g/cm2, LSC for Total Hip = 0.027 g/cm2 # Denotes dissimilar scan types or analysis methods Impression: The patient has osteoporosis, based on the Total Spine T-score. No significant bone loss was observed. Discussion: INCREASED RISK OF FRACTURE. BONE DENSITY IS UNDESIRABLY LOW AT ONE OR MORE SKELETAL SITES, CONSISTENT WITH POSTMENOPAUSAL OSTEOPOROSIS. This patient's lowest T-score meets the World Health Organization's (WHO) criteria for osteoporosis at one or more sites (T-score -2.5 or below). In untreated patients, the risk of osteoporotic fracture increases approximately two-fold for each 1.0 SD decrease in T-score. Low bone density is not the only risk factor for fracture; also consider factors such as patient's age, frailty or poor health, risk of falling, risk of injury, previous osteoporotic fracture, family history of osteoporosis, cigarette smoking, low body weight, etc. Not everyone with low bone mineral density has osteoporosis; osteomalacia and other metabolic bone disorders should also be considered. Patients who have osteoporosis should be evaluated for specific diseases and conditions (secondary causes) that may cause or contribute to bone loss. The [place] Association [employer] Endocrinologists (AACE) and National Osteoporosis Foundation (NOF) recommend pharmacologic intervention for all postmenopausal women whose T-score is in this range. The patient should follow a healthful lifestyle (good nutrition with adequate calcium and vitamin D, and appropriate weight-bearing exercise). Follow-Up: Consider a repeat BMD and Vertebral Fracture Assessment (VFA) exam in 2 years or sooner if medically necessary, to reassess this patient's status. Reported by: [facility] MARGUERITE BRYANT M.D. on 03/26/2023 1:19:00 PM.
--- NOTE | 2023-03-26 | DI.MG.S_ITS ---
BILATERAL DIGITAL SCREENING MAMMOGRAM 3D/2D WITH CAD: 03/26/2023 CLINICAL: Routine screening. Baseline exam. No prior exams were available for comparison. There are scattered areas of fibroglandular density in both breasts (category b / 25%-50% glandular tissue). Current study was also evaluated with a Computer Aided Detection (CAD) system. No significant masses, calcifications, or other findings are seen in either breast. IMPRESSION: NEGATIVE There is no mammographic evidence of malignancy. A 1 year screening mammogram is recommended. Based on the Tyrer Cuzick model (a risk assessment model) the patient's lifetime risk is 6.6% and her 10 year risk is 4.6%. According to the ACR, ACS, and NCCN guidelines, an annual breast MRI exam along with mammogram is recommended if the patient's lifetime risk is 20% or greater. This exam was interpreted at Station ID: [id number]. NOTE: For mammograms, a report in lay terms will be sent to the patient. Approximately 15% of breast malignancies will not be visualized mammographically. In the management of a palpable breast mass, a negative mammogram must not discourage biopsy of a clinically suspicious lesion. Electronically Signed By: Irma Santana M.D., PH.D marie/dee dee:03/26/2023 19:48:31 letter sent: Normal Exam ACR BI-RADS Category 1: Negative [id number]
== END ==
PROVIDERS: PCP Nurse Practitioner Family; Referring Provider Nurse Practitioner Primary Care; Visit Provider Nurse Practitioner Primary Care
DX: Z12.31 Encounter for screening mammogram for malignant neoplasm of breast (principal); M81.0 Age-related osteoporosis without current pathological fracture
CPT/HCPCS: 77063; 77067; 77080

== ENCOUNTER → 2024-06-23 13:02 | Outpatient (CLI) | payer MEDICARE, SELFPAY ==
--- NOTE | 2024-06-23 13:04 | DI.RAD.S_ITS ---
PROCEDURE: XR DEXA AXIAL SKELETON INDICATIONS: SCREENING FOR OSTEOPOROSIS COMPARISON: [facility], , XR DEXA AXIAL SKELETON, 03/26/2023, 13:07. [facility], CR, XR DEXA AXIAL SKELETON, 11/25/2017, 14:32. FINDINGS: Lumbar Spine: Bone mineral density 0.714 g/cm2, T score -3.0, previously -2.9. Left Femoral Neck: Bone mineral density 0.56 g/cm2, T score -2.6. Left Hip: Bone mineral density 0.636 g/cm2, T score -2.5, previously -2.4. Fracture Risk Calculation (when applicable): 10-year fracture risk of a major osteoporotic fracture 25 percent and of a hip fracture 14 percent. (T score greater or equal to -1.0 to: NORMAL) (T score from -1.1 to -2.4: OSTEOPENIA) (T score less than or equal to -2.5: OSTEOPOROSIS) IMPRESSION: 1. Osteoporosis of the lumbar spine. 2. Osteoporosis of the left hip and femoral neck. Follow-up guidelines as follows: Osteoporosis: Consider a repeat DEXA and Vertebral Fracture Assessment (VFA) exam in 2 years or sooner if medically necessary, to reassess this patient's status. Osteopenia: Consider a repeat DEXA in 2-3 years to reassess this patient's status, or if there is a new clinical indication. Normal: Consider a repeat DEXA in 5 years or sooner, or if there is a new clinical indication. All treatment decisions require clinical judgment and consideration of individual patient factors, including patient preferences, comorbidities, previous drug use, risk factors not captured in the FRAX model (e.g., frailty, falls, vitamin D deficiency, increased bone turnover, interval significant decline in bone density ) and possible under- or over-estimation of fracture risk by FRAX. In addition, the NOF Guide recommends that FDA-approved medical therapies be considered in postmenopausal women and men age >= 50 years with a: * Hip or vertebral (clinical or morphometric) fracture * T-score of <=-2.5 at the spine or hip * Ten-year fracture probability by FRAX of >= 3% for hip fracture or >=20% for major osteoporotic fracture. Dictated by: Tadeo Matthews M.D. on 06/23/2024 at 15:37 Approved by: Tadeo Matthews M.D. on 06/23/2024 at 15:38
== END ==
PROVIDERS: PCP Nurse Practitioner Family; Referring Provider Physician Assistant; Visit Provider Physician Assistant
DX: M81.0 Age-related osteoporosis without current pathological fracture (principal)
CPT/HCPCS: 77080

== ENCOUNTER → 2024-08-09 14:21 | Outpatient (CLI) | payer MEDICARE, SELFPAY ==
[2024-08-09 14:57] LABS: Add Manual Diff / Slide Review NO; Basophils Absolute Auto 0 /uL (0-100); Basophils Percent Auto 0.7 % (0-2); Eosinophils Absolute Auto 100 /uL (0-450); Eosinophils Percent Auto 1.8 % (2-4); Hematocrit 39.7 % (36-46); Hemoglobin 13.8 g/dL (12.0-16.0); Lymphocytes Absolute Auto 1600 /uL (1100-4500); Lymphocytes Percent Auto 26.4 % (25-40); Mean Corpuscular HGB Conc 34.7 % (30-36); Mean Corpuscular Hemoglobin 31.7 PG (26-34); Mean Corpuscular Volume 91.3 fL (80-100); Monocytes Absolute Auto 600 /uL (0-900); Monocytes Percent Auto 10.1 % (3-14); Neutrophils Absolute Auto 3800 /uL (1500-7000); Platelet Count 248 X10^3/uL (150-400); Red Blood Cell Count 4.34 X10^6/uL (4.0-5.2); White Blood Cell Count 6.2 X10^3/uL (4.5-11.0)
[2024-08-09 15:31] LABS: Alanine Aminotransferase 22 IU/L (<35); Albumin 4.6 g/dL (3.5-5.0); Albumin Globulin Ratio 1.7 (1.0-2.8); Alkaline Phosphatase 73 U/L (38-126); Aspartate Aminotransferase 26 IU/L (14-36); BUN Creatinine Ratio 27.8 (6-22); Bilirubin Total 1.2 mg/dL (0.2-1.3); Blood Urea Nitrogen 20 mg/dL (7-17); Calcium 9.9 mg/dL (8.4-10.2); Carbon Dioxide 27 mmol/L (22-32); Chloride 106 mmol/L (98-107); Estimated Glomerular Filt Rate > 60 mL/min (>60); Globulin 2.7 g/dL (1.7-4.1); Glucose 90 mg/dL (80-110); HEMOLYSIS < 15 (0-50); Rheumatoid Factor < 8.6 IU/mL (<12.0); Sodium 143 mmol/L (137-145); Total Protein 7.3 g/dL (6.3-8.2)
[2024-08-09 16:39] LABS: Erythrocyte Sedimentation Rate 13 MM/HR (0-20)
[2024-08-11 04:10] LABS: CRP, High Sensitivity 5.59 mg/L (0.00-3.00)
[2024-08-12 17:09] LABS: ANA Screen, IFA Negative (.)
== END ==
PROVIDERS: PCP Family Medicine; Referring Provider Ophthalmology; Visit Provider Ophthalmology
DX: H44.131 Sympathetic uveitis, right eye (principal); G44.89 Other headache syndrome
CPT/HCPCS: 36415; 80053; 84443; 85025; 85651; 86038; 86140; 86430

== ENCOUNTER → 2024-08-18 15:03 | Outpatient (CLI) | payer MEDICARE, SELFPAY ==
[2024-08-18 16:04] LABS: Add Manual Diff / Slide Review NO; Basophils Absolute Auto 100 /uL (0-100); Eosinophils Absolute Auto 100 /uL (0-450); Eosinophils Percent Auto 1.8 % (2-4); Hematocrit 38.2 % (36-46); Hemoglobin 13.1 g/dL (12.0-16.0); Lymphocytes Absolute Auto 1400 /uL (1100-4500); Lymphocytes Percent Auto 25.4 % (25-40); Mean Corpuscular HGB Conc 34.4 % (30-36); Mean Corpuscular Hemoglobin 32.1 PG (26-34); Mean Corpuscular Volume 93.4 fL (80-100); Monocytes Absolute Auto 600 /uL (0-900); Neutrophils Absolute Auto 3500 /uL (1500-7000); Neutrophils Percent Auto 61.8 % (50-75); Platelet Count 249 X10^3/uL (150-400); Red Blood Cell Count 4.09 X10^6/uL (4.0-5.2); White Blood Cell Count 5.7 X10^3/uL (4.5-11.0)
[2024-08-18 16:27] LABS: Erythrocyte Sedimentation Rate 8 MM/HR (0-20)
[2024-08-20 03:39] LABS: CRP, High Sensitivity 1.08 mg/L (0.00-3.00)
== END ==
PROVIDERS: PCP Family Medicine; Referring Provider Ophthalmology; Visit Provider Ophthalmology
DX: H20.041 Secondary noninfectious iridocyclitis, right eye (principal); H57.11 Ocular pain, right eye
CPT/HCPCS: 36415; 85025; 85651; 86140